=== PATIENT | female | born 1945 | race Caucasian/White ===

== ENCOUNTER → 2025-07-16 11:35 | Outpatient (REF) | payer MEDICARE, OTHER, SELFPAY ==
[2025-07-16 13:17] LABS: Hematocrit 45.3 % (37.0-47.0); Hemoglobin 15.2 g/dL (12.0-16.0); Mean Corp Hgb Conc. 33.6 g/dL (33.0-37.0); Mean Corpuscular Volume 86.5 fL (81.0-99.0); Nucleated Red Blood Cells % 0 %; Platelet Count 373 10^3/uL (130-400); Red Cell Dist. Width 13.3 % (11.5-14.5)
[2025-07-16 13:18] LABS: Urine Character Clear (Clear)
[2025-07-16 14:07] LABS: ALT (SGPT) 28 U/L (0-35); AST (SGOT) 30 U/L (14-36); Albumin 4.4 g/dl (3.5-5.0); Alkaline Phosphatase 104 U/L (38-126); Blood Urea Nitrogen 12 mg/dl (7-17); Calcium 9.5 mg/dl (8.4-10.2); Carbon Dioxide 27 mmol/L (22-30); Chloride 100 mmol/L (98-107); Glucose 111 mg/dl (70-99); HDL Cholesterol 64 mg/dl; LDL Cholesterol, Calculated 98 mg/dl; Potassium 4.6 mmol/L (3.5-5.1); Sodium 136 mmol/L (135-145); Total Protein 7.4 g/dl (6.3-8.2); Very Low Density Lipoprotein 19 mg/dl (0-30); eGFR > 60.00
[2025-07-16 14:25] LABS: Vitamin D, 25-OH*** 44.4 ng/mL (30-80)
[2025-07-16 15:11] LABS: Folate 17.6 ng/ml (2.76-20); Vitamin B12 657 pg/ml (239-931)
[2025-07-16 15:25] LABS: Urine Squamous Cell 16-20 /LPF (Few); Urine Urothelial Cell 0-2 /LPF (FEW)
[2025-07-16 15:26] LABS: Urine Red Blood Cell 0-2 /HPF (0-2)
[2025-07-18 13:21] LABS: Lyme Antibody Screen, EIA Negative (Negative)
== END ==
LOC: REG 11:35
PROVIDERS: ATTENDING PHYSICIAN Internal Medicine Geriatric Medicine
DX: E78.2 Mixed hyperlipidemia (principal); E03.8 Other specified hypothyroidism; R73.01 Impaired fasting glucose; Z13.89 Encounter for screening for other disorder; R41.3 Other amnesia; E53.9 Vitamin B deficiency, unspecified; Z79.899 Other long term (current) drug therapy
CPT/HCPCS: 36415; 80053; 80061; 81003; 81015; 82306; 82607; 82746; 84207; 84425; 85025; 86618